=== PATIENT | female | born 1995 | race Caucasian/White ===

== ENCOUNTER → 2020-01-12 17:53 | Outpatient (CLI) | payer OTHER, SELFPAY | PROVIDERS: PCP Family Medicine; Referring Provider Physician Assistant; Visit Provider Physician Assistant | DX: Z20.828 Contact with and (suspected) exposure to other viral communicable diseases (principal) | CPT/HCPCS: 87635; C9803; U0003 ==

== ENCOUNTER → 2020-05-18 14:39 | Outpatient (CLI) | payer OTHER, SELFPAY ==
[2016-09-28 04:01] VITALS: BMI 14.6
[2020-05-18 17:35] LABS: Absolute Lymphocyte Count 1.37 X10^3/uL (0.83-4.51); Basophil# 0.03 X10^3/uL; Basophil% 0.5 % (0-1); Eosinophil# 0.06 X10^3/uL; Hematocrit 35.6 % (37-47); Hemoglobin 11.7 g/dL (12.0-15.0); Lymphocyte # 1.37 X10^3/ul (4.0); Lymphocyte % 23.2 % (19-41); Mean Corp Hgb Conc 32.9 g/dL (32-36); Mean Corpuscular Hgb 28.4 pg (27.0-32.0); Mean Corpuscular Volume 86.4 fL (81-99); Monocyte# 0.46 X10^3/uL; Monocyte% 7.8 % (0-10); NRBC Flagged by Analyzer 0 % (0-5); Neutrophil # 3.97 X10^3/uL (2.7-7.7); Neutrophil % 67.2 % (47-70); Platelet Count 329 K/mm3 (150-450); RBC Distribution Width SD 40.6 fl (35.1-43.9); Red Blood Count 4.12 M/mm3 (4.2-5.4); White Blood Count 5.9 K/mm3 (4.4-11.0)
[2020-05-18 17:59] LABS: ALB/GLOB Ratio 1.8 RATIO (0.9-2.4); AST(SGOT) 19 U/L (15-37); Alanine Aminotransfer ALT/SGPT 30 U/L (13-56); Albumin, Serum 4.4 g/dL (3.2-5.0); Alkaline Phosphatase 69 U/L (45-117); Anion Gap 6 (5-15); BUN 9 mg/dL (7-18); BUN/Creat Ratio 13.4 RATIO (10-20); Calcium,Total 9.1 mg/dL (8.5-10.1); Chloride 110 mmol/L (98-107); Creatinine, Serum 0.67 mg/dL (0.55-1.02); EST Glomerular Filtration Rate 115 mL/min (>60); Est Glom Filt Rate - Afr Amer 139 mL/min (>60); Globulin 2.5 g/dL (2.2-4.2); Glucose 80 mg/dL (74-106); Potassium 3.8 mmol/L (3.5-5.1); Protein, Total 6.9 g/dL (6.4-8.2); Sodium Level 141 mmol/L (136-145); Thyroid Stim Hormone (TSH) 1.35 uIU/mL (0.358-3.74)
== END ==
PROVIDERS: PCP Family Medicine; Referring Provider Family Medicine; Visit Provider Family Medicine
DX: G43.909 Migraine, unspecified, not intractable, without status migrainosus (principal); R55 Syncope and collapse
CPT/HCPCS: 36415; 80053; 84443; 85025

== ENCOUNTER 2020-05-23 08:13 | Emergency (ER) | payer OTHER, SELFPAY ==
[2020-05-23 08:14] VITALS: BP 119/86; PULSE 113; RESP 16; TEMP 36.7; O2SAT 99; BMI 23.3
--- NOTE | 2020-05-23 08:33 | EKG12_ITS ---
Test Reason : GENERAL ILLNESS Blood Pressure : / mmHG Vent. Rate : 119 BPM Atrial Rate : 115 BPM P-R Int : 000 ms QRS Dur : 066 ms QT Int : 430 ms P-R-T Axes : 000 076 016 degrees QTc Int : 604 ms Sinus tachycardia Nonspecific T wave abnormality Prolonged QT Abnormal ECG Confirmed by NICK MCKEON, NEELA ([id number]), writer editor BENY LOAIZA ([id number]) on 05/25/2020 9:26:08 AM Referred By: BECKI Confirmed By:ETHAN ROMERO MD
--- NOTE | 2020-05-23 08:33 | RAD_ITS ---
STUDY: X-RAY CHEST REASON FOR EXAM: Female, 24 years old. Sob TECHNIQUE: Single AP portable view of the chest. COMPARISON: Comparison is made with prior study dated 09/28/2016. FINDINGS: The lungs are clear and expanded. There is no demonstrated pleural abnormality. Normal size heart. Normal mediastinum and randall. Normal visualized pulmonary arteries. Normal visualized aortic arch and descending thoracic aorta. Normal visualized thoracic spine. Normal visualized ribs, clavicles, and shoulders. There is no demonstrated abnormality of the visualized soft tissue structures of the upper abdomen. RAD/Chest 1 View (Portable) IMPRESSION: Normal x-ray examination of the chest. Electronically Signed: Jose Kahn MD at 10:17 EDT , Service support ,
--- NOTE | 2020-05-23 08:41 | NURSING ---
NO OLD EKGS
[2020-05-23] MEDS: 0.9% Normal Saline 1,000 ML 1000 ML IV (08:49)
[2020-05-23 08:52] VITALS: BP 107/76; BP 115/81; BP 117/85; PULSE 113; PULSE 114
[2020-05-23] MEDS: Ondansetron 4 MG/2 ML Vial IV (08:59)
[2020-05-23] MEDS: Famotidine 200 MG/20 ML MDV 20 MG in 0.9% Normal Saline (Pres. free 8 ML 300 MG IV (08:59)
[2020-05-23 09:32] LABS: Mucous, Urine 0 SEEN /hpf (<or=2+); Red Blood Cells-Urine 0 SEEN /hpf (0-5)
[2020-05-23 09:48] LABS: Color, Urine Yellow (Yellow); Glucose, Dipstick NEGATIVE (Normal); Nitrite-Dipstick Positive (Negative); Protein-Dipstick 30 mg/dl (Negative); Urine Bilirubin Dipstick Negative (Negative); Urine Clarity Clear (Clear); Urine Urobilinogen Normal (Normal)
[2020-05-23 09:49] LABS: Leukocyte Esterase-Dipstick 25 /ul (Negative); Occult Blood-Urine 25 /ul (Negative)
[2020-05-23 09:51] LABS: Hematocrit 43.5 % (37-47); Hemoglobin 15.2 g/dL (12.0-15.0); Red Blood Count 5.26 M/mm3 (4.2-5.4); White Blood Count 13.8 K/mm3 (4.4-11.0)
[2020-05-23 09:52] LABS: Bacteria 3+ /hpf (None Seen); Internal QC Validated? YES +Cl - CLEAR BKGD; Ketone-Dipstick 150 mg/dl (Negative); Pregnancy, Urine Negative Negative; Squamous Epithelial Cells - UA 0-5 SEEN /hpf (5-10); White Blood Cells 10-25 SEEN /hpf (0-5)
[2020-05-23 09:52] LABS: Differential Indicated SCAN CRITERIA MET; Mean Corp Hgb Conc 34.9 g/dL (32-36); Mean Corpuscular Hgb 28.9 pg (27.0-32.0); Mean Corpuscular Volume 82.7 fL (81-99); Mean Platelet Vol. 9.1 fl (6.2-12.0); Platelet Count 346 K/mm3 (150-450); RBC Distribution Width CV 12.9 % (11.6-14.6); RBC Distribution Width SD 38.4 fl (35.1-43.9)
[2020-05-23 09:53] LABS: Absolute Lymphocyte Count 0.58 X10^3/uL (0.83-4.51); Absolute Neutrophil Count 12.7 X10^3/uL (2.0-7.7); Basophil# 0.03 X10^3/uL; Basophil% 0.2 % (0-1); Eosinophil# 0.07 X10^3/uL; Eosinophils% 0.5 % (0-5); Lymphocyte # 0.58 X10^3/ul (4.0); Lymphocyte % 4.2 % (19-41); Monocyte# 0.45 X10^3/uL; Monocyte% 3.3 % (0-10); Neutrophil # 12.65 X10^3/uL (2.7-7.7); Neutrophil % 91.5 % (47-70)
[2020-05-23 10:03] LABS: ALB/GLOB Ratio 1.4 RATIO (0.9-2.4); AST(SGOT) 11 U/L (15-37); Alanine Aminotransfer ALT/SGPT 30 U/L (13-56); Albumin, Serum 5.3 g/dL (3.2-5.0); Alkaline Phosphatase 97 U/L (45-117); Anion Gap 10 (5-15); BUN 15 mg/dL (7-18); BUN/Creat Ratio 17.5 RATIO (10-20); Calcium,Total 10.4 mg/dL (8.5-10.1); Chloride 107 mmol/L (98-107); Creatinine, Serum 0.86 mg/dL (0.55-1.02); EST Glomerular Filtration Rate 88 mL/min (>60); Est Glom Filt Rate - Afr Amer 106 mL/min (>60); Estimated Creatinine Clearance 77.43 ml/min; Globulin 3.8 g/dL (2.2-4.2); Glucose 99 mg/dL (74-106); Lipase 147 U/L (73-393); Potassium 3.8 mmol/L (3.5-5.1); Protein, Total 9.1 g/dL (6.4-8.2); Sodium Level 139 mmol/L (136-145)
[2020-05-23 10:21] VITALS: BP 104/74
[2020-05-23] MEDS: Metoclopramide 10 MG/2 ML Vial 2.5 MG IV (10:33)
[2020-05-23] MEDS: Cephalexin 250 MG Capsule 500 MG PO (10:34)
--- NOTE | 2020-05-23 10:35 | ED.VIS.GI ---
History of Present Illness Chief Complaint: General Illness Informant: Patient - Abdominal Pain/Flank Pain Onset: Yesterday - Nausea/Vomiting/Emesis GI Symptom: Nausea, Vomiting Narrative: Is a 24-year-old female without any significant past medical history presenting with nausea vomiting and syncope. Patient states she started vomiting last night around 1:30 AM. She had vomiting and diarrhea. She denies any black or blood in her vomit or her stool. Patient states when she got up to go the bathroom she felt lightheaded and then when she tried to stand up again she passed out. Her boyfriend witnessed the episode and states she was out for less than a minute. Patient notes for the past week she has had worsening headaches and cold-like symptoms. She notes she does have some associated shortness of breath and chest tightness. She has any swelling of her legs. Denies a history of DVT or PE. She was tested for Covid last week on and was negative. Patient states she has had a cough productive of yellow sputum. She denies any fever. No other complaints at this time. Past Medical History - Allergies and Home Meds Allergies/Adverse Reactions: Allergies latex Allergy (Verified 05/23/20 08:17) Rash Sulfa (Sulfonamide Antibiotics) Allergy (Verified 05/23/20 08:17) Rash Primary Care Physician: Pako Pappas MD [Primary Care Provider] - Past Medical History: None Surgical History: noncontributory Lives: Spouse/ Significant Other Smoking Status: Never smoker Review of Systems General: Reports: Malaise. Denies: Chills, Fever, Sweats Eyes: Denies: Visual changes - bilaterally, Diplopia ENT: Denies: Rhinorrhea, Sore throat Cardiovascular: Denies: Chest pain, Palpitations Respiratory: Reports: Dyspnea, Cough, Sputum. Denies: Dyspnea on exertion Gastrointestinal: Reports: Nausea, Vomiting, Diarrhea. Denies: Abdominal pain, Melena, Hematochezia Genitourinary: Denies: Dysuria, Hematuria, Frequency Musculoskeletal: Denies: Back pain, Extremity Pain Skin: Denies: Rash, Wounds Neurological: Denies: Headache, Weakness, Numbness Physical Exam Vital Signs/Narrative: Vital Signs Temp Pulse Pulse Pulse Pulse Resp BP 05/23/20 10:21 104/74 05/23/20 08:52 114 H 113 H 114 H 05/23/20 08:14 98.0 F 113 H 16 119/86 H BP BP BP Pulse Ox 05/23/20 10:21 05/23/20 08:52 107/76 115/81 H 117/85 H 05/23/20 08:14 99 Inital Vital Signs reviewed: Yes General: Well nourished, Well developed, No Acute Distress Head: Normocephalic, Atraumatic Eyes: Perrl, EOMI ENT: No rhinorrhea, Dry mucous membranes Neck: Supple, Nontender Cardiovascular: Regular rhythm, No murmurs, Tachycardia Respiratory: No distress, CTA bilaterally, Chest nontender. Negative for: Diminished, Decreased Air Movement Abdomen: Soft, Nontender, Nondistended, Normal bowel sounds. Negative for: Guarding, Rebound tenderness Back: Nontender, Normal Inspection. Negative for: CVA tenderness Extremities: Nontender, No edema. Negative for: Edema Skin: Normal color, No rash Neurological: Alert, Oriented x3, Cranial nerves II-XII grossly intact, Normal Strength, Normal Sensation Psychological: Normal affect, Normal Mood Diagnostic/Tx/Re-eval Chest X-Ray - ED: 1 View, Read by ED Physician, Read by Radiologist, No Acute Disease Clinical Impression(s) from Imaging Studies Chest X-Ray 05/23/20 08:33 IMPRESSION: Normal x-ray examination of the chest. Electronically Signed: Jose Kahn MD at 10:17 EDT , Service support , Laboratory Data 05/23/20 05/23/20 05/23/20 08:45 08:45 09:24 WBC 13.8 H RBC 5.26 Hgb 15.2 H Hct 43.5 MCV 82.7 MCH 28.9 MCHC 34.9 D RDW Std Deviation 38.4 RDW Coeff of Brice 12.9 Plt Count 346 MPV 9.1 Immature Gran % (Auto) 0.300 Neut % (Auto) 91.5 H Lymph % (Auto) 4.2 L Walsh % (Auto) 3.3 Eos % (Auto) 0.5 Baso % (Auto) 0.2 Absolute Neuts (auto) 12.7 H Absolute Lymphs (auto) 0.58 L Differential Comment COMMENT Sodium 139 Potassium 3.8 Chloride 107 Carbon Dioxide 22.0 Anion Gap 10 BUN 15 Creatinine 0.86 Estim Creat Clear Calc 77.43 Est GFR (MDRD) Af Amer 106 Est GFR (MDRD) Non-Af 88 BUN/Creatinine Ratio 17.5 Glucose 99 Calcium 10.4 H Total Bilirubin 1.00 AST 11 L ALT 30 Alkaline Phosphatase 97 Troponin I < 0.015 Total Protein 9.1 H Albumin 5.3 H Globulin 3.8 Albumin/Globulin Ratio 1.4 Lipase 147 Urine Color Yellow Urine Clarity Clear Urine pH 5.0 Ur Specific [place] 1.020 Urine Protein 30 H Urine Glucose (UA) NEGATIVE Urine Ketones 150 H Urine Occult Blood 25 H Urine Nitrite Positive H Urine Bilirubin Negative Urine Urobilinogen Normal Ur Leukocyte Esterase 25 H Urine RBC 0 SEEN Urine WBC 10-25 SEEN Ur Squamous Epith Cells 0-5 SEEN Urine Bacteria 3+ Urine Mucus 0 SEEN Urine Test Negative - Rhythm Strip Rhythm Strip: Sinus Tach Rate: 119 Ectopy: None - EKG Initial EKG Interpretation: Sinus Tachycardia, - - Sinus tachycardia at a rate of 119 Normal axis Normal [place] and QRS Prolonged QTC at 604 T wave inversion in inferior leads with no reciprocal changes. - Medical Decision Making Patient evaluated for what sounds like a vasovagal episode of syncope after having vomiting and diarrhea. Patient is complaining of nausea upon arrival. She is tachycardic. She is given IV fluids and Zofran. She does have improvement of symptoms with this treatment. Patient also states she is had a cold for the past week and associated chest tightness. EKG, troponin, Covid test and chest x-ray obtained which do not show any acute process. I suspect patient has a viral syndrome that is causing her symptoms. Discharged home with prescription for Zofran. She does have a mild leukocytosis however this might be reactive from her vomiting. Patient's hemoglobin is mildly elevated and I suspect she is hemoconcentrated. She does have elevated neutrophils which is consistent with low lymphocytes. CMP is normal. Lipase is normal. Urinalysis does show 150 ketones which is consistent with dehydration. She does have nitrates and 25 leukoesterase as well as 3+ bacteria in her urine. She will be treated for UTI as well with 3-day course of Keflex. Patient is counseled on signs and symptoms requiring return to the emergency room. Patient verbalizes agreement and understand this plan. Patient discharged home in stable and improved condition. ED Disposition - Plan for ED Patient: Disposition: Home or Assisted Living Diagnosis: UTI (urinary tract infection), Syncope and collapse, Vomiting and diarrhea, Dehydration Instructions: ED Dehydration (Adult), ED Fainting, Uncertain Cause, ED Vomiting and Diarrhea ... Prescriptions: Cephalexin [Keflex] 500 mg PO Q12 #6 capsule Prescription Printed proMETHazine tablet [Phenergan] 25 mg PO Q6H PRN PRN #10 tab PRN Reason: Nausea Prescription Printed Referrals: Pako Pappas MD [Primary Care Provider] - Additional Instructions: Return to the ER if you have worsening shortness of breath, more episodes of passing out or worsening symptoms.
== END 2020-05-23 11:03 | disposition home or self-care (01) ==
PROVIDERS: Emergency Provider Emergency Medicine; PCP Family Medicine
DX: N39.0 Urinary tract infection, site not specified (principal); R55 Syncope and collapse; E86.0 Dehydration; R11.2 Nausea with vomiting, unspecified; R19.7 Diarrhea, unspecified
CPT/HCPCS: 71045; 80053; 81001; 81025; 83690; 84484; 85025; 87426; 93005; 96365; 96366; 96375; 99285; J7030; A4216; J2405; J3490

== ENCOUNTER → 2020-10-18 | Outpatient (CLI) | payer OTHER, SELFPAY ==
[2020-10-18 17:35] LABS: Amphetamine Urine VISTA NEGATIVE (<1000 ng/mL); Barbiturate Urine VISTA NEGATIVE (< 200 ng/mL); Benzodiazepine Urine VISTA NEGATIVE (< 200 ng/mL); Cocaine Urine VISTA NEGATIVE (< 300 ng/mL); Ecstacy Urine VISTA NEGATIVE (< 500 ng/mL); Methadone Urine VISTA NEGATIVE (< 300 ng/mL); PCP Urine VISTA NEGATIVE (< 25 ng/mL); THC Urine VISTA NEGATIVE (< 50 ng/mL); Vista UDS pH Range 6
[2020-10-22 05:07] LABS: Chlamydia By Nucleic Acid AMP Negative (Negative)
[2020-10-23 08:22] LABS: Gonococcus By Nucleic Acid AMP Negative (Negative)
[2020-10-23 16:58] LABS: HPV Reflexed? NOT INDICATED
== END | disposition home or self-care (01) ==
LOC: LABSPEC 16:37
PROVIDERS: PCP Family Medicine; Referring Provider Obstetrics & Gynecology; Visit Provider Obstetrics & Gynecology
DX: Z12.4 Encounter for screening for malignant neoplasm of cervix (principal); O09.90 Supervision of high risk pregnancy, unspecified, unspecified trimester; Z3A.00 Weeks of gestation of pregnancy not specified
CPT/HCPCS: 80307; 87086; 87491; 87591; 88175; G0145

== ENCOUNTER → 2020-11-21 10:55 | Outpatient (CLI) | payer OTHER, SELFPAY ==
[2020-11-21 11:14] LABS: Absolute Lymphocyte Count 1.66 X10^3/uL (0.83-4.51); Absolute Neutrophil Count 7.4 X10^3/uL (2.0-7.7); Basophil# 0.02 X10^3/uL; Basophil% 0.2 % (0-1); Eosinophil# 0.12 X10^3/uL; Eosinophils% 1.2 % (0-5); Hematocrit 37.4 % (37-47); Hemoglobin 12.9 g/dL (12.0-15.0); Lymphocyte # 1.66 X10^3/ul (0.83-4.51); Mean Corp Hgb Conc 34.5 g/dL (32-36); Mean Platelet Vol. 9.1 fl (6.2-12.0); Monocyte# 0.56 X10^3/uL; Monocyte% 5.7 % (0-10); NRBC Flagged by Analyzer 0 % (0-5); Neutrophil # 7.37 X10^3/uL (2.7-7.7); Neutrophil % 75.4 % (47-70); Platelet Count 326 K/mm3 (150-450); RBC Distribution Width CV 12.2 % (11.6-14.6); RBC Distribution Width SD 37.2 fl (35.1-43.9); Red Blood Count 4.45 M/mm3 (4.2-5.4); White Blood Count 9.8 K/mm3 (4.4-11.0)
[2020-11-21 12:06] LABS: HIV - WCH Non-Reactive (Nonreactive); Hepatitis B Surface Antigen Non-Reactive (Nonreactive); Hepatitis C Antibody Non-Reactive (Nonreactive); Rubella IgG Reactive (Nonreactive); Syphilis Antibodies Non-reactive
[2020-11-21 12:08] LABS: NATERA MAILED SPECIMEN
== END ==
PROVIDERS: PCP Family Medicine; Referring Provider Obstetrics & Gynecology; Visit Provider Obstetrics & Gynecology
DX: O09.91 Supervision of high risk pregnancy, unspecified, first trimester (principal); Z3A.00 Weeks of gestation of pregnancy not specified
CPT/HCPCS: 36415; 85025; 86703; 86762; 86780; 86803; 86850; 86900; 86901; 87340

== ENCOUNTER 2021-08-06 14:45 | Emergency (ER) | payer OTHER, SELFPAY ==
[2021-08-06 14:46] VITALS: BP 121/79; PULSE 120; RESP 18; TEMP 36.6; O2SAT 97; BMI 22.3
--- NOTE | 2021-08-06 15:24 | ED.VIS.GI ---
HPI HPI - GI History of Present Illness Chief Complaint: Abd Pain Detail of Chief Complaint: Abdominal pain that started a month ago Informant: patient Narrative Narrative: Patient presents to the emergency department complaint of abdominal pain that started a month ago. Patient states that she has had similar pain off and on for the last 9 years and thinks she has gallbladder flareups. Food really does not seem to affect her pain. Pain is scribed as severe in the epigastric region and radiating through to her back at times. Patient denies had a fever 2 days ago up to 101.. Patient's had intermittent nausea and vomiting but she is also 13 weeks . There is a family history of gallbladder disease. Patient also states she has had history of peptic ulcer disease. She is also wondering if it could be heartburn. Patient had a ultrasound of the at 6 weeks. She not had any vaginal bleeding. Prior similar symptoms: Yes PFSH PFSH Medical History Anemia Asthma Bleeding disorder Congenital heart defect Factor V deficiency GERD (gastroesophageal reflux disease) History of blood clots History of blood transfusion History of maternal blood transfusion, currently Migraine headache Pneumonia hemorrhage of section wound Home Medications naproxen 500 mg PO BID PRN #20 tab 09/28/16 [Rx Last Taken Unknown] ondansetron HCl 4 mg tablet 4 mg PO TID PRN #90 tab 08/21/20 [Rx Last Taken Unknown] enoxaparin 40 mg/0.4 mL subcutaneous syringe 40 mg SUBCUT DAILY #30 dose 10/18/20 [Rx Last Taken Unknown] hydroxyzine pamoate 25 mg capsule 25 mg PO QHS #30 cap 10/18/20 [Rx Last Taken Unknown] promethazine 12.5 mg tablet 12.5 mg PO Q6H PRN #60 tab 10/18/20 [Rx Last Taken Unknown] ondansetron 4 mg PO Q8H PRN PRN #10 tab 08/06/21 [Rx Last Taken Unknown] Allergy/AdvReac Type Severity Reaction Status Date / Time latex Allergy Rash Verified 08/06/21 14:48 Sulfa (Sulfonamide Allergy Rash Verified 08/06/21 14:48 Antibiotics) Family History Sister Kidney disease Mother Liver disease Surgical History H/O section H/O reconstruction of anterior cruciate ligament tear History of myringotomy History of tonsillectomy Social History household members: children number of children: 1 current occupational status: employed current occupation: [employer] pets and animals: No Smoking Status: Never smoker Electronic Cigarette Use: not used second hand exposure: Yes (BF vapes) alcohol intake: current alcohol intake frequency: holidays/special occasions only substance use type: does not use seatbelt use: always do you feel safe at home: Yes additional social history: BF- [employer] ([employer]) ROS ROS ED Constitutional Constitutional ED: Reports systems reviewed and no addt'l complaints, except as documented; Denies body ache(s), change in weight or chills Eyes Eyes: Denies acute decrease in peripheral vision, change in vision, double vision or loss of vision ENT ENT ED: Reports none; Denies ear pain, lip swelling, loss taste/smell, neck pain, otalgia or sore throat Cardiovascular Cardiovascular: Reports none; Denies abdominal pain, chest pain with activity, leg edema, lightheadedness, palpitations, rapid heart rate or syncope Respiratory/Chest Respiratory/Chest: Reports none; Denies change in mental status, dry cough, dyspnea, hemoptysis, shortness of breath at rest or shortness of breath with exertion Gastrointestinal Gastrointestinal: Reports none, abdominal pain, nausea and vomiting; Denies change in stool character, diarrhea, hematemesis, hematochezia, melena or rectal bleeding Genitourinary Genitourinary ED: Reports none; Denies abdominal discomfort, anuria, dysuria, genital pain or polyuria Musculoskeletal Musculoskeletal: Reports none; Denies arthralgias, back pain, difficulty walking, extremity pain, muscle weakness or myalgias Integumentary Reports none; Denies abscess or rash Neurologic Neurologic: Reports none; Denies abnormal gait, confusion, focal weakness, frequent falls, headache(s), loss of vision, numbness, paresthesias, radicular pain, vertigo or weakness Psychiatric Psychiatric: Reports systems reviewed and no addt'l complaints, except as documented and none; Denies behavioral changes, confusion, difficulty concentrating, hallucinations, suicidal ideation, tactile hallucinations or visual hallucinations Endocrine Endocrinology: Denies none, cold intolerance, excessive sweating, fatigue or heat intolerance Hematologic/Lymphatic Hematologic/Lymphatic: Reports none; Denies anemia, easy bleeding or easy bruising Allergic/Immunologic Allergic/Immunologic ED: Denies as per HPI, none, lip swelling, mouth swelling, throat swelling, tongue swelling or hives EXAM Physical Exam Const Vital Signs: 08/06/21 14:46 08/06/21 17:03 Temperature 97.9 F Temperature Source Temporal Pulse Rate 120 H Respiratory Rate 18 16 Blood Pressure 121/79 H Blood Pressure Mean 93 Pulse Ox 97 Oxygen Delivery Method Room Air Positive well nourished and well developed General Appearance ED: well developed and NAD HEENT Reports TM's clear and moist mucous membranes normocephalic and atraumatic; Negative for trauma or tenderness Tympanic Membrane ED: Yes TM's clear Eyes PERRL and EOMs intact bilaterally General Eye ED: Negative for pale conjunctiva or scleral icterus Neck no lymphadenopathy, supple and no JVD General: Negative for tenderness Chest Wall inspection of chest normal and palpation of chest normal Chest: Negative for tenderness Resp normal respiratory effort and clear to auscultation bilaterally Effort and Inspection: Negative for respiratory distress or pain with movement Auscultation: Negative for rhonchi, wheezes or diminished lung sounds Cardio regular rate, regular rhythm, S1 normal heart sound, S2 normal heart sound and no murmurs Peripheral Pulses: pulses 2+ throughout GI normal to inspection, nondistended, normoactive bowel sounds, soft to palpation, non-distended and no masses GI Narrative: Patient with tenderness over the epigastric region with some guarding. There is no rebound, rigidity, or peritoneal signs. Back/Spine no CVA tenderness and no thoracic nor lumbar tenderness Extremity normal to inspection General Extremety ED: Negative for edema General Extremity: Negative for edema Neuro oriented x3, CN's II-XII intact bilaterally, no sensory deficits noted and gait normal Sensorium / Orientation: awake, alert, oriented to person, oriented to place and oriented to time Motor Exam: strength 5/5 throughout and strength abnormal Psych mental status grossly normal Skin no rashes or lesions noted and no wounds MDM MDM MDM Narrative Medical decision making narrative: IV lines have on arrival. Lab work-up was normal. LFTs and lipase were normal. Urinalysis was normal.. heart tones were 154. Patient received a GI cocktail for pain that was 8 out of 10 and had almost complete resolution of her pain. At this point patient will be discharged to home. Patient does state that she has a prescription for medicine but has not been needing it or taking it for acid secretion. Patient advised to use Mylanta if pain returns. 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 Patient advised to return if worsening pain, fever, vomiting, or condition should worsen anyway. I will give her a prescription for Zofran. Lab Data Attestation: I reviewed the patient's lab results. Labs: Laboratory Results - last 24 hr 08/06/21 08/06/21 08/06/21 15:08 15:08 15:30 WBC 8.5 RBC 3.73 L Hgb 10.8 L Hct 31.2 L MCV 83.6 MCH 29.0 MCHC 34.6 RDW Std Deviation 39.6 RDW Coeff of Brice 13.1 Plt Count 295 MPV 9.4 Immature Gran % (Auto) 0.400 Neut % (Auto) 75.3 H Lymph % (Auto) 17.0 L [place] % (Auto) 5.5 Eos % (Auto) 1.4 Baso % (Auto) 0.4 Absolute Neuts (auto) 6.4 Absolute Lymphs (auto) 1.45 Nucleated RBC % 0 Sodium 139 Potassium 3.4 L Chloride 110 H Carbon Dioxide 22.0 Anion Gap 7 BUN 6 L Creatinine 0.53 L Estim Creat Clear Calc 123.51 Est GFR (MDRD) Af Amer 184 Est GFR (MDRD) Non-Af 152 BUN/Creatinine Ratio 11.4 Glucose 95 Calcium 8.8 Total Bilirubin 0.30 AST 9 L ALT 11 L Alkaline Phosphatase 58 Total Protein 6.2 L Albumin 3.1 L Globulin 3.1 Albumin/Globulin Ratio 1.0 Lipase 189 Urine Color Straw Urine Clarity Sl. Cloudy Urine pH 7.0 Ur Specific [place] 1.010 Urine Protein Negative Urine Glucose (UA) Normal Urine Ketones Negative Urine Occult Blood Negative Urine Nitrite Negative Urine Bilirubin Negative Urine Urobilinogen Normal Ur Leukocyte Esterase Negative Urine RBC 0 SEEN Urine WBC 0 SEEN Ur Squamous Epith Cells 0-5 SEEN Urine Bacteria 1+ Urine Mucus 0 SEEN Discharge Plan Triage Chief Complaint: Abd Pain ED Provider: Marisol Le Dx/Rx/DC Orders Clinical Impression: Abdominal pain, GERD with esophagitis, Instructions: ED Abdominal Pain Unkn Cause Fem, ED GERD (Adult) Prescriptions: New ondansetron [ondansetron] 4 MG tablet 4 mg PO Q8H PRN PRN (Reason: Nausea) Qty: 10 RF: 0 No Action ondansetron HCl [Zofran] 4 mg tablet 4 mg PO TID PRN (Reason: nausea and vomiting) Qty: 90 RF: 2 promethazine 12.5 mg tablet 12.5 mg PO Q6H PRN (Reason: nausea and vomiting) Qty: 60 RF: 2 hydroxyzine pamoate [Vistaril] 25 mg capsule 25 mg PO QHS Qty: 30 RF: 4 enoxaparin [Lovenox] 40 mg/0.4 mL syringe 40 mg subcut DAILY Qty: 30 RF: 10 naproxen 500 MG tablet 500 mg PO BID PRN Qty: 20 RF: 0 Primary Care Provider: Care Physician,No Primary Referrals: Care Physician,No Primary [Primary Care Provider] - Activity Restrictions/Additional Instructions: See your [employer] SUPERVISOR to discuss further treatment of reflux or peptic ulcer disease during her . Disposition Disposition: Home, Self Care
[2021-08-06] MEDS: Mag Hydrox/Al Hydrox/Simeth 30 ML UDC PO (15:32)
[2021-08-06] MEDS: 0.9% Normal Saline 1,000 ML 125 ML IV (15:32)
[2021-08-06 15:41] LABS: Absolute Lymphocyte Count 1.45 X10^3/uL (0.83-4.51); Absolute Neutrophil Count 6.4 X10^3/uL (2.0-7.7); Basophil# 0.03 X10^3/uL; Basophil% 0.4 % (0-1); Eosinophil# 0.12 X10^3/uL; Eosinophils% 1.4 % (0-5); Hematocrit 31.2 % (37-47); Hemoglobin 10.8 g/dL (12.0-15.0); Lymphocyte # 1.45 X10^3/ul (0.83-4.51); Mean Corp Hgb Conc 34.6 g/dL (32-36); Mean Corpuscular Volume 83.6 fL (81-99); Mean Platelet Vol. 9.4 fl (6.2-12.0); Monocyte# 0.47 X10^3/uL; Monocyte% 5.5 % (0-10); NRBC Flagged by Analyzer 0 % (0-5); Neutrophil # 6.44 X10^3/uL (2.7-7.7); Neutrophil % 75.3 % (47-70); Platelet Count 295 K/mm3 (150-450); RBC Distribution Width CV 13.1 % (11.6-14.6); RBC Distribution Width SD 39.6 fl (35.1-43.9); Red Blood Count 3.73 M/mm3 (4.2-5.4); White Blood Count 8.5 K/mm3 (4.4-11.0)
[2021-08-06 15:51] LABS: Mucous, Urine 0 SEEN /hpf (<or=2+); Red Blood Cells-Urine 0 SEEN /hpf (0-5); White Blood Cells 0 SEEN /hpf (0-5)
[2021-08-06 16:00] LABS: Color, Urine Straw (Yellow); Glucose, Dipstick Normal (Normal); Ketone-Dipstick Negative (Negative); Leukocyte Esterase-Dipstick Negative /ul (Negative); Nitrite-Dipstick Negative (Negative); Occult Blood-Urine Negative /ul (Negative); Protein-Dipstick Negative (Negative); Urine Bilirubin Dipstick Negative (Negative); Urine Clarity Sl. Cloudy (Clear); Urine Urobilinogen Normal (Normal)
[2021-08-06 16:01] LABS: AST(SGOT) 9 U/L (15-37); Alanine Aminotransfer ALT/SGPT 11 U/L (13-56); Albumin, Serum 3.1 g/dL (3.2-5.0); Alkaline Phosphatase 58 U/L (45-117); Anion Gap 7 (5-15); BUN 6 mg/dL (7-18); BUN/Creat Ratio 11.4 RATIO (10-20); Calcium,Total 8.8 mg/dL (8.5-10.1); Chloride 110 mmol/L (98-107); Creatinine, Serum 0.53 mg/dL (0.55-1.02); EST Glomerular Filtration Rate 152 mL/min (>60); Est Glom Filt Rate - Afr Amer 184 mL/min (>60); Estimated Creatinine Clearance 123.51 ml/min; Globulin 3.1 g/dL (2.2-4.2); Glucose 95 mg/dL (74-106); Lipase 189 U/L (73-393); Potassium 3.4 mmol/L (3.5-5.1); Protein, Total 6.2 g/dL (6.4-8.2); Sodium Level 139 mmol/L (136-145)
--- NOTE | 2021-08-06 16:10 | CM.ED ---
SW Note Referral Source: Case Find Referral Reason: No PCP SW noted patient had no PCP. SW provided patient with [facility] Healthcare Directory and encouraged them to follow up for a PCP. No other issues or questions voiced. SW remains available if needs arise. Plan: Resources provided Sera RAIN
[2021-08-06 16:27] LABS: Bacteria 1+ /hpf (None Seen); Squamous Epithelial Cells - UA 0-5 SEEN /hpf (5-10)
[2021-08-06 17:03] VITALS: RESP 16
== END 2021-08-06 17:33 | disposition home or self-care (01) ==
PROVIDERS: Emergency Provider Emergency Medicine; Visit Provider Emergency Medicine
DX: O99.611 Diseases of the digestive system complicating pregnancy, first trimester (principal); K21.00 Gastro-esophageal reflux disease with esophagitis, without bleeding; Z3A.13 13 weeks gestation of pregnancy; Z77.22 Contact with and (suspected) exposure to environmental tobacco smoke (acute) (chronic)
CPT/HCPCS: 80053; 81001; 83690; 85025; 96360; 96361; 99284; J7030; A4216

== ENCOUNTER 2021-09-07 15:33 | Emergency (ER) | payer OTHER, SELFPAY ==
[2021-09-07 15:33] VITALS: BP 107/82; PULSE 118; RESP 16; TEMP 37.4; O2SAT 100; BMI 21.7
--- NOTE | 2021-09-07 15:45 | EDS_ITS ---
HPI <CANDELARIO Xiao - Last Filed: 09/07/21 16:22> History of Present Illness Chief Complaint: Nausea/Vomiting Narrative Narrative: Patient is 18 weeks presenting with nausea and vomiting since midnight. She has not been able to keep down anything to eat or drink despite taking Phenergan. She states in her first she had bad nausea and vomiting but has not significantly had at this time. She has had no complications thus far and is following with OB. She denies abdominal pain or bladder or bowel changes. She thought she had a fever just prior to coming in but here is afebrile. No abdominal pain or bleeding. PENDING SALE TO [facility] <CANDELARIO Xiao - Last Filed: 09/07/21 16:22> PENDING SALE TO [facility] Medical History Anemia Asthma Bleeding disorder Congenital heart defect Factor V deficiency GERD (gastroesophageal reflux disease) History of blood clots History of blood transfusion History of maternal blood transfusion, currently Migraine headache Pneumonia hemorrhage of section wound Home Medications naproxen 500 mg tablet 500 mg PO BID PRN #20 tabs 09/28/16 [Rx Last Taken Unknown] ondansetron HCl 4 mg tablet (Zofran) 4 mg PO TID PRN nausea and vomiting #90 tabs 08/21/20 [Rx Last Taken Unknown] enoxaparin 40 mg/0.4 mL subcutaneous syringe (Lovenox) 40 mg (0.4 mL) subcut DAILY #30 doses 10/18/20 [Rx Last Taken Unknown] hydroxyzine pamoate 25 mg capsule (Vistaril) 25 mg PO QHS #30 caps 10/18/20 [Rx Last Taken Unknown] promethazine 12.5 mg tablet 12.5 mg PO Q6H PRN nausea and vomiting #60 tabs 10/18/20 [Rx Last Taken Unknown] ondansetron 4 mg disintegrating tablet 4 mg PO Q8H PRN PRN Nausea #10 tabs 08/06/21 [Rx Last Taken Unknown] ondansetron 4 mg disintegrating tablet 4 mg PO Q8H PRN PRN Nausea #10 tabs 09/07/21 [Rx Last Taken Unknown] Allergy/AdvReac Type Severity Reaction Status Date / Time latex Allergy Rash Verified 09/07/21 15:35 Sulfa (Sulfonamide Allergy Rash Verified 09/07/21 15:35 Antibiotics) Family History Sister Kidney disease Mother Liver disease Surgical History H/O section H/O reconstruction of anterior cruciate ligament tear History of myringotomy History of tonsillectomy Social History household members: children number of children: 1 current occupational status: employed current occupation: [employer] pets and animals: No Smoking Status: Never smoker Electronic Cigarette Use: not used second hand exposure: Yes (BF vapes) alcohol intake: current alcohol intake frequency: holidays/special occasions only substance use type: does not use seatbelt use: always do you feel safe at home: Yes additional social history: BF- Jorden ([employer]) ROS <CANDELARIO Xiao - Last Filed: 09/07/21 16:22> ROS ED ROS Narrative Constitutional: Negative for fever, chills, malaise. Eyes: Negative for visual change. ENT: Negative for sore throat, ear pain, rhinorrhea. CVS: Negative for palpitations, chest pain, syncope. Respiratory: Negative for shortness of breath, cough, orthopnea. GI: Positive for nausea, vomiting. Negative for abdominal pain, diarrhea, constipation, melena, hematochezia. : Negative for dysuria, hematuria or frequency. Neuro: Negative for headache, motor/sensory dysfunction. Skin: Negative for rash, abscess, or wound. Musc: Negative for joint pain, swelling, trauma. Heme: Negative for easy bruising, bleeding, lymphadenopathy. EXAM <CANDELARIO Xiao - Last Filed: 09/07/21 16:22> Physical Exam Narrative Exam Narrative: CONST: Patient sitting in no acute distress. EYES: Normal inspection. ENT: Normal inspection,slightly dry mucous membranes. NECK: Normal inspection. RESP: No respiratory distress, CTAB. CVS: Rapid but regular rhythm, no murmur, no gallop. ABD: Soft and nontender, no guarding or rebound. SKIN: Color normal, no rash, warm, dry, intact. EXTREMITIES: Normal appearance, no pedal edema. NEURO: Oriented x4. PSYCH: Normal affect. Const Vital Signs: 09/07/21 15:33 Temperature 99.3 F H Temperature Source Temporal Pulse Rate 118 H Respiratory Rate 16 Blood Pressure 107/82 H Blood Pressure Mean 90 Pulse Ox 100 Oxygen Delivery Method Room Air <Dr. Andres Bullock MD - Last Filed: 09/07/21 16:06> Physical Exam Const Vital Signs: 09/07/21 15:33 Temperature 99.3 F H Temperature Source Temporal Pulse Rate 118 H Respiratory Rate 16 Blood Pressure 107/82 H Blood Pressure Mean 90 Pulse Ox 100 Oxygen Delivery Method Room Air MDM <CANDELARIO Xiao - Last Filed: 09/07/21 16:22> [facility] Narrative Medical decision making narrative: PA: Patient is 18 weeks presenting with nausea and vomiting. She appears slightly dehydrated but nontoxic. Tachycardic around 118, otherwise normal vital signs. Other than mildly dry mucous membranes and rapid rate regular rhythm exam is benign. She will be treated with IV fluids and Zofran and reevaluated. She feels better but is requesting something for acid reflux which is a chronic condition. She was given p.o. Protonix and is keeping that down along with fluids. I prescribed Zofran for home and she was discharged in stable condition. I have personally performed a face to face assessment of the patient and have reviewed the [facility] Note. I performed a substantive portion of the visit including all aspects of the following. My warren findings include: History is [26-year-old female evaluated with our physician child welfare assistant. Patient is Ab0. Currently patient is 18 weeks and is due on February 09. States that she had a lot of nausea and vomiting with her first . She has been nausea and vomiting today. No fever. No dysuria. Vaginal bleeding.] Exam is [well-appearing 26-year-old female no acute distress. Vital signs stable. She does not look septic or toxic. H EENT exam unremarkable. Moist with membranes. Neck nontender no lymphadenopathy. Lungs are clear. Heart regular rhythm rate about 110 no murmur. Abdomen is soft no peritoneal signs. No obstruction. No uterine tenderness. Patient moving all 4 extremities. Nontender. No edema. Neurologically she is awake and alert.] Medical Decision Making [18-week female with nausea and vomiting. Treated with IV fluids and IV Zofran. When she can hold down fluids she will be discharged home. Prescription for Zofran. Follow-up with her DIRECTOR OF RECRUITMENT AND ADMISSIONS physician. Return if worse.] Other additions or changes: [None] <Dr. Andres Bullock MD - Last Filed: 09/07/21 16:06> [facility] Narrative Medical decision making narrative: Patient is 18 weeks presenting with nausea and vomiting. She appears slightly dehydrated but nontoxic. Tachycardic around 03/02/2017, otherwise normal vital signs. Other than mildly dry mucous membranes and rapid rate regular rhythm exam is benign. She will be treated with IV fluids and Zofran and reevaluated. I have personally performed a face to face assessment of the patient and have reviewed the [facility] Note. I performed a substantive portion of the visit including all aspects of the following. My warren findings include: History is [26-year-old female evaluated with our physician child welfare assistant. Patient is Ab0. Currently patient is 18 weeks and is due on February 09. States that she had a lot of nausea and vomiting with her first . She has been nausea and vomiting today. No fever. No dysuria. Vaginal bleeding.] Exam is [well-appearing 26-year-old female no acute distress. Vital signs stable. She does not look septic or toxic. H EENT exam unremarkable. Moist with membranes. Neck nontender no lymphadenopathy. Lungs are clear. Heart regular rhythm rate about 110 no murmur. Abdomen is soft no peritoneal signs. No obstruction. No uterine tenderness. Patient moving all 4 extremities. Nontender. No edema. Neurologically she is awake and alert.] Medical Decision Making [18-week female with nausea and vomiting. Treated with IV fluids and IV Zofran. When she can hold down fluids she will be discharged home. Prescription for Zofran. Follow-up with her DIRECTOR OF RECRUITMENT AND ADMISSIONS physician. Return if worse.] Other additions or changes: [None] Discharge Plan Triage Chief Complaint: Nausea/Vomiting ED Midlevel Provider: Edilia Zavala ED Provider: Andres Bullock Dx/Rx/DC Orders Clinical Impression: Nausea and vomiting during Instructions: ED Hyperemesis Gravidarum Prescriptions: New ondansetron 4 mg tablet,disintegrating 4 mg PO Q8H PRN PRN (Reason: Nausea) Qty: 10 0RF No Action ondansetron HCl [Zofran] 4 mg tablet 4 mg PO TID PRN (Reason: nausea and vomiting) Qty: 90 2RF promethazine 12.5 mg tablet 12.5 mg PO Q6H PRN (Reason: nausea and vomiting) Qty: 60 2RF hydroxyzine pamoate [Vistaril] 25 mg capsule 25 mg PO QHS Qty: 30 4RF enoxaparin [Lovenox] 40 mg/0.4 mL syringe 40 mg subcut DAILY Qty: 30 10RF naproxen 500 MG tablet 500 mg PO BID PRN Qty: 20 0RF ondansetron [ondansetron] 4 MG tablet 4 mg PO Q8H PRN PRN (Reason: Nausea) Qty: 10 0RF Referrals: Care Physician,No Primary [NON-STAFF] - Activity Restrictions/Additional Instructions: I prescribed Zofran to take as needed for nausea and vomiting. Please follow-up with your DIRECTOR OF RECRUITMENT AND ADMISSIONS. If you cannot keep down fluids despite medication or feel dehydrated or lightheaded come back to the emergency room. Disposition Disposition: Home, Self Care
[2021-09-07] MEDS: Ondansetron 4 MG/2 ML Vial IV (15:51)
[2021-09-07] MEDS: 0.9% Normal Saline 1,000 ML 999 ML IV (15:51)
[2021-09-07] MEDS: Pantoprazole Sodium 40 MG Tablet PO (16:24)
[2021-09-07 16:42] VITALS: BP 118/78; PULSE 66; RESP 14; TEMP 37.1; O2SAT 100
== END 2021-09-07 16:43 | disposition home or self-care (01) ==
PROVIDERS: Emergency Provider Emergency Medicine; Visit Provider Emergency Medicine
DX: O21.9 Vomiting of pregnancy, unspecified (principal); O20.9 Hemorrhage in early pregnancy, unspecified; O99.891 Other specified diseases and conditions complicating pregnancy; Z3A.18 18 weeks gestation of pregnancy; Z86.2 Personal history of diseases of the blood and blood-forming organs and certain disorders involving the immune mechanism
CPT/HCPCS: 96361; 96374; 99284; J7030; A4216; J2405

== ENCOUNTER 2021-10-19 20:50 | Outpatient (CLI) | payer OTHER, SELFPAY ==
[2021-10-19 21:01] VITALS: BMI 23.3
[2021-10-19 21:13] VITALS: BP 99/64; PULSE 89
--- NOTE | 2021-10-20 10:25 | OB.TRI.PN ---
Progress Notes Progress Note: at 23 weeks with OSWALDO 02/09/22 for decreased movement. no leakage of fluid, vaginal bleeding, or contractions O: FHR 140s, no NST due to gestational age. Able to hear movement on monitor Assessment & Plan (1) Decreased movement: PLAN: reviewed FKCs D/C home
== END 2021-10-19 22:20 | disposition home or self-care (01) ==
LOC: WPOUT 20:52 → WP 20:53
PROVIDERS: Visit Provider Advanced Practice Midwife
DX: O36.8120 Decreased fetal movements, second trimester, not applicable or unspecified (principal); Z3A.23 23 weeks gestation of pregnancy
CPT/HCPCS: 59050; 99218; G0378

== ENCOUNTER 2022-02-04 10:16 | Inpatient (IN) | payer OTHER, SELFPAY ==
[2022-02-04] VITALS (15 sets, daily range): BP systolic 83–110; BP diastolic 47–66; PULSE 80–131; RESP 16–17; TEMP 36.1–36.9; O2SAT 96–100; BMI 25.4
[2022-02-04] MEDS: Acetaminophen 500 MG Tablet 1000 MG PO ×3 (10:37→23:36)
[2022-02-04] MEDS: Lactated Ringers 1,000 ML 999 ML IV ×2 (10:58→14:45)
[2022-02-04 11:13] LABS: Absolute Lymphocyte Count 1.56 X10^3/uL (0.83-4.51); Absolute Neutrophil Count 5.4 X10^3/uL (2.0-7.7); Basophil# 0.02 X10^3/uL; Basophil% 0.3 % (0-1); Eosinophil# 0.08 X10^3/uL; Eosinophils% 1.1 % (0-5); Hemoglobin 10.3 g/dL (12.0-15.0); Lymphocyte # 1.56 X10^3/ul (0.83-4.51); Lymphocyte % 20.7 % (19-41); Mean Corp Hgb Conc 34.3 g/dL (32-36); Mean Corpuscular Hgb 29.9 pg (27.0-32.0); Mean Platelet Vol. 8.9 fl (6.2-12.0); Monocyte# 0.39 X10^3/uL; Monocyte% 5.2 % (0-10); NRBC Flagged by Analyzer 0 % (0-5); Neutrophil # 5.38 X10^3/uL (2.7-7.7); Neutrophil % 71.5 % (47-70); Platelet Count 275 K/mm3 (150-450); RBC Distribution Width SD 47.9 fl (35.1-43.9); Red Blood Count 3.45 M/mm3 (4.2-5.4); White Blood Count 7.5 K/mm3 (4.4-11.0)
[2022-02-04] MEDS: Sodium Citrate/Citric Acid 30 ML UDC PO (11:52)
[2022-02-04] MEDS: Cefazolin 2 GM in 0.9% Normal Saline 100 ML IV (12:15)
--- NOTE | 2022-02-04 12:26 | PCM.HP.OB ---
HPI - General General Date of Admission: 02/04/22 Date of Service: 02/04/22 HPI Narrative PB CHU, is a 26 F who presents for . Maternal Data Information Final OSWALDO: 02/09/22 Gestational age: 39&2 PFSH PFSH Medical History Anemia Anxiety Asthma Bleeding disorder Congenital heart defect Depression Factor V deficiency GERD (gastroesophageal reflux disease) Headache History of blood clots History of blood transfusion History of maternal blood transfusion, currently Migraine headache Pneumonia depression hemorrhage hemorrhage of section wound Home Medications promethazine 12.5 mg tablet 12.5 mg PO Q6H PRN nausea and vomiting #60 tabs 10/18/20 [Rx Last Taken 02/03/22 18:30] folic acid 1 mg tablet 1 mg PO DAILY 10/19/21 [History Last Taken 02/02/22 12:00] Allergy/AdvReac Type Severity Reaction Status Date / Time latex Allergy Rash Verified 02/04/22 10:18 Sulfa (Sulfonamide Allergy Rash Verified 02/04/22 10:18 Antibiotics) nickel AdvReac Rash Verified 02/04/22 10:18 Family History Sister Kidney disease Mother Liver disease Surgical History H/O section H/O reconstruction of anterior cruciate ligament tear History of myringotomy History of tonsillectomy Social History household members: children number of children: 1 current occupational status: employed current occupation: [employer] pets and animals: No Smoking Status: Former smoker Electronic Cigarette Use: not used second hand exposure: Yes (BF vapes) alcohol intake: current alcohol intake frequency: holidays/special occasions only substance use type: does not use seatbelt use: always do you feel safe at home: Yes additional social history: BF- Jorden ([email or web address]) History 2 Elective abortions 1 Hx Para 1 Spontaneous abortions Hx # Term Pregnancies Ectopic pregnancies Hx # Pregnancies Multiple births # of living children 1 Past Pregnancies Del. Date Name GA/Weeks Outcome Route Bth Weight Gen Labor Lgth Anesthesia Del Locatn Provider FOB 08/19/18 Deneen 39 live - full term 8lbs 11oz Female 39 hours epidural [place] Delivery Date: 08/19/18 Last Updated by: Yasmin Pineda Pre term labor at 21 weeks and bleeding given Rhogam and steroid injection to stop the contractions. Maternal tachycardia; bradycardia STAT C/S; C/S hemorrhage- receive a blood transfusion. Factor V was on Lovenox and Heparin Vital Signs Vital Signs Vital Signs: Weight Weight: 135 lb Body Mass Index (BMI) 25.4 Physical Exam Const alert and oriented x3 Chest inspection of chest normal Resp normal respiratory effort GI soft to palpation, non-tender and non-distended Inspection: gravid Labs Labs Labs: Blood Type A NEGATIVE Antibody Screen NEGATIVE Hct 30.0 % (37-47) L Hgb 10.3 g/dL (12.0-15.0) L Syphilis Total Ab Non-reactive Rubella IgG Antibody Reactive (Nonreactive) Hep Bs Antigen Non-Reactive (Nonreactive) Chlamydia DNA (ERIN) Negative (Negative) Neisseria gonorrhoeae DNA (ERIN) Negative (Negative) HIV 1&2 Antibody Non-Reactive (Nonreactive) See CF H&P Assessment & Plan (1) H/O section: (2) Factor V deficiency: (3) Request for sterilization: PLAN: Plan @ 39&2 Admit to L&D MOD - repeat section Sterilization request - plan for bilateral salpingectomy Informed consent signed after discussing R/B/A including risks of regret & failure with sterilization H/o DVT - needs PP lovenox Routine care
--- NOTE | 2022-02-04 12:40 | FALS_PTH ---
PATIENT: PB CHU LOC: [facility] U#:[id number] AGE/SX: 26/F ROOM: WP005 RE02/04/[address]: Dr. Reginald Quan MD : 1995 BED: 1 DIS: 02/05/2022 SPEC #: [id number] RECD: 02/04/22 15:02 STATUS: MICHAEL DAYKareem #: [id number] LELIA: 02/04/22 12:[address]: Reginald Quan DEPT: SURGICAL PATHOLOGY RECD BY: Billie Lenz Tissues: Fallopian tube Procedures: Surgery Specimen Level II HEADER OPERATION: Tubal ligation PRE-OP DIAGNOSIS: Sterilization TISSUE SUBMITTED: Fallopian tubes, left tube with suture MICROSCOPIC DIAGNOSIS Right fallopian tube, salpingectomy: Benign paratubal cyst. Left fallopian tube, salpingectomy: No pathologic change. AM:maria del carmen 02/06/2022 MICROSCOPIC DESCRIPTION Slides are reviewed. GROSS DESCRIPTION Received in fixative is one container labeled with the patient's name and designated bilateral fallopian tubes. The specimen consists of bilateral fallopian tubes including fimbrial ends. The left tube is identified by a suture. The right fallopian tube measures 8.5 cm in length and 0.6 cm in diameter and left fallopian tube measures 6 cm in length and 0.6 cm in diameter. Sections reveal unremarkable cut surfaces. Copper Plater sections are submitted in two cassettes as follows: 1 - right fallopian tube, 2??left fallopian tube. / SHANA:maria del carmen 02/05/2022 TC:5 CPT: 48384 x2
--- NOTE | 2022-02-04 13:27 | EX.PCM.OBRPT ---
Maternal Data Information Final OSWALDO: 02/09/22 Gestational age: 39&2 Details Operative Information Date of Procedure: 02/04/22 Pre-Operative Diagnosis: (1) Prior section (2) Sterilization request Post-Operative Diagnosis: Same Indications for : Repeat Elective and Desires elective sterilization Indications Narrative: The patient was taken to the operating room where spinal anesthesia was placed & found to be adequate. She was prepped and draped in the dorsal supine position with a leftward tilt. A Pfannenstiel skin incision was made approximately 2 cm above the symphysis pubis and carried through to the underlying fascia with the scalpel. The fascia was incised incised in the midline and extended laterally with the Zhang scissors. The rectus muscles were in the midline and the peritoneum was entered carefully and bluntly. The peritoneal incision was stretched and the bladder blade was inserted. Vesicouterine peritoneum was tented up, incised & then bladder flap created gently. The uterine incision was made in a low transverse fashion with the scalpel and extended superiorly and inferiorly with blunt dissection. The infant's head was brought to the incision in the flexed position and delivered without difficulty. The head was gently guided to allow delivery of the anterior and posterior shoulders. The body then delivered with fundal pressure in the standard fashion. The 3VC cord was clamped and cut in delayed fashion. The infant was handed off to the waiting seasonal retail merchandiser. The placenta was delivered with fundal massage and gentle traction in the standard fashion. The uterus was exteriorized and cleared of clots and debris. The uterine incision was closed with #1 Vicryl suture in a running locked fashion. Monocryl suture was used in an imbricating fashion. The incision was examined and was found to be hemostatic. Attention was then turned to the fallopian tubes. The left fallopian tube was grasped, cauterized and cut using the ligasure. Excellent hemostasis was obtained. Then the right fallopian tube was grasped, cauterized and cut using the ligasure. Excellent hemostasis was obtained The uterus was returned to the abdominal cavity. Again excellent hemostasis of the tubal excision sites was confirmed. After irrigating Fely was placed over the uterine incision as some areas were denuded (but hemostatic). The peritoneum was closed with vicryl suture in running fashion The rectus muscle was examined and any bleeding was Bovie cauterized. The fascia was closed with PDS suture in a running standard fashion. The subcutaneous tissue was examining and any bleeding was Bovie cauterized. The subcutaneous tissue was reapproximated with interrupted sutures. The skin was closed in a subcuticular fashion by the GENERAL FREIGHT AGENT while I was present in the labor & delivery unit. The remainder of the procedure was performed by me with assistance. All sponge, lap, and needle counts were correct. The patient was taken to her room for recovery in a stable condition. Classification: Scheduled Procedure Type: bilateral salpingectomy resource economist #1: Kelly Palumbo Type of Anesthesia: Spinal Antibiotic Given: Ancef 2 grams IV x1 Drain: Herring to straight drain Estimated Blood Loss: 800ml Fluids Replaced: 1,000ml Procedure Start Time: 12:37 Procedure Stop Time: 13:30 Findings Description of Procedure: Normal maternal uterus and adnexa Presentation: Positive for Vertex Amniotic Membrane Rupture Type: Artificial Amniotic Fluid Description: Clear Placental Delivery Description: Expressed Placenta Disposition: [facility] Specimen(s) Sent to Pathology: bilateral fallopian tubes Cord Vessel Description: 3 Vessels Cord Entanglement: None Infant A Gender: Male (weight = 9lbs) (1 minute): 8 (5 minute): 9 Delayed Cord Clamping: Yes
[2022-02-04] MEDS: Ketorolac 30 MG/ML Syringe IV ×2 (14:12→20:06)
[2022-02-04] MEDS: Oxytocin 15 Units/NS 250ml 15 UNITS/250 ML IV.SOLN 83 UNITS IV (14:48)
[2022-02-04 15:04] LABS: Pathology Specimen OB SEE PATHOLOGY REPORT
[2022-02-04] MEDS: Methylergonovine 0.2 MG/ML Ampul IM (15:05)
[2022-02-04 15:39] LABS: Absolute Lymphocyte Count 0.77 X10^3/uL (0.83-4.51); Absolute Neutrophil Count 16.8 X10^3/uL (2.0-7.7); Basophil# 0.03 X10^3/uL; Basophil% 0.2 % (0-1); Eosinophil# 0.02 X10^3/uL; Eosinophils% 0.1 % (0-5); Hematocrit 27.4 % (37-47); Hemoglobin 9.4 g/dL (12.0-15.0); Lymphocyte # 0.77 X10^3/ul (0.83-4.51); Lymphocyte % 4.2 % (19-41); Mean Corp Hgb Conc 34.3 g/dL (32-36); Mean Corpuscular Hgb 29.7 pg (27.0-32.0); Mean Corpuscular Volume 86.4 fL (81-99); Mean Platelet Vol. 8.8 fl (6.2-12.0); Monocyte# 0.53 X10^3/uL; Monocyte% 2.9 % (0-10); NRBC Flagged by Analyzer 0 % (0-5); Neutrophil # 16.78 X10^3/uL (2.7-7.7); Neutrophil % 91.9 % (47-70); Platelet Count 266 K/mm3 (150-450); RBC Distribution Width CV 14.8 % (11.6-14.6); RBC Distribution Width SD 47.1 fl (35.1-43.9); Red Blood Count 3.17 M/mm3 (4.2-5.4); White Blood Count 18.3 K/mm3 (4.4-11.0)
[2022-02-04 15:53] LABS: Fibrinogen 236 mg/dl (203-444)
[2022-02-04] MEDS: miSOPROStol 200 MCG Tablet 1000 MCG RC (16:09)
[2022-02-04] MEDS: Ondansetron 4 MG/2 ML Vial IV (16:12)
[2022-02-04] MEDS: proCHLORPERazine 10 MG/2 ML Vial IV (17:25)
[2022-02-04] MEDS: Lactated Ringers 1,000 ML 100 ML IV (18:34)
--- NOTE | 2022-02-04 20:58 | NURSING ---
During initial assessment at 1999, pt VS WNL, bleeding was small on pad with no clots. Pt stated to me and Claire Stallworth she still felt dizzy but nausea was gone and otherwise felt okay. Fundus was at U and firm and no new bleeding when pressing on belly.
[2022-02-05] VITALS (12 sets, daily range): BP systolic 85–100; BP diastolic 49–67; PULSE 74–89; RESP 16–18; TEMP 36.3–37.1; O2SAT 98–99
[2022-02-05] MEDS: Enoxaparin 40 MG/0.4 ML Syringe SC (00:24)
[2022-02-05] MEDS: Ketorolac 30 MG/ML Syringe IV ×2 (02:12→08:30)
[2022-02-05] MEDS: 0.9% Saline Lock 10 ML Syringe IV ×2 (02:12→08:31)
[2022-02-05] MEDS: Acetaminophen 500 MG Tablet 1000 MG PO ×3 (05:28→17:44)
[2022-02-05 05:29] LABS: Hematocrit 20.8 % (37-47); Hemoglobin 7.2 g/dL (12.0-15.0); Mean Corp Hgb Conc 34.6 g/dL (32-36); Mean Corpuscular Hgb 30.1 pg (27.0-32.0); Mean Platelet Vol. 8.7 fl (6.2-12.0); Platelet Count 207 K/mm3 (150-450); RBC Distribution Width CV 14.6 % (11.6-14.6); RBC Distribution Width SD 47.4 fl (35.1-43.9); Red Blood Count 2.39 M/mm3 (4.2-5.4); White Blood Count 13.7 K/mm3 (4.4-11.0)
--- NOTE | 2022-02-05 08:26 | PCM.PROGNOTE ---
Subjective Subjective patient seen at bedside, doing well. Patient reports good pain control. lochia mild. voiding and passing flatus- some dizziness at times when ambulating. denies CP, SOB. Objective Data Objective Data Vital Signs: Vital Signs Temp Pulse Resp BP Pulse Ox O2 Del Method 97.9 F 85 16 99/67 98 Room Air 02/05/22 08:00 02/05/22 08:00 02/05/22 08:00 02/05/22 08:00 02/05/22 08:00 02/05/22 08:00 Oxygen Delivery Method Room Air Weight: 61.235 kg Body Mass Index (BMI) 25.4 Intake & Output: Intake and Output for Last 24 Hours 02/03/22 02/04/22 02/05/22 23:59 23:59 23:59 Intake Total 2756.67 / 2756.67 Output Total 1531 / 1531 550 / 550 Balance 1225.67 / 1225.67 -550 / -550 Lab / Micro Data Result Diagrams: 02/05/22 05:20 Labs: Laboratory Results - last 24 hr 02/04/22 10:58: WBC 7.5, RBC 3.45 L, Hgb 10.3 L, Hct 30.0 L, MCV 87.0, MCH 29.9, MCHC 34.3, RDW Std Deviation 47.9 H, RDW Coeff of Brice 15.0 H, Plt Count 275, MPV 8.9, Immature Gran % (Auto) 1.200 H, Neut % (Auto) 71.5 H, Lymph % (Auto) 20.7, Crook % (Auto) 5.2, Eos % (Auto) 1.1, Baso % (Auto) 0.3, Absolute Neuts (auto) 5.4, Absolute Lymphs (auto) 1.56, Nucleated RBC % 0 02/04/22 10:58: Blood Type A NEGATIVE, Antibody Screen POSITIVE H, Antibody Identification ANTI-D 02/04/22 10:58: Crossmatch See Detail 02/04/22 15:30: WBC 18.3 H, RBC 3.17 L, Hgb 9.4 L, Hct 27.4 L, MCV 86.4, MCH 29.7, MCHC 34.3, RDW Std Deviation 47.1 H, RDW Coeff of Brice 14.8 H, Plt Count 266, MPV 8.8, Immature Gran % (Auto) 0.700, Neut % (Auto) 91.9 H, Lymph % (Auto) 4.2 L, Crook % (Auto) 2.9, Eos % (Auto) 0.1, Baso % (Auto) 0.2, Absolute Neuts (auto) 16.8 H, Absolute Lymphs (auto) 0.77 L, Nucleated RBC % 0 02/04/22 15:30: Fibrinogen 236 02/05/22 05:20: WBC 13.7 H, RBC 2.39 L, Hgb 7.2 L, Hct 20.8 L, MCV 87.0, MCH 30.1, MCHC 34.6, RDW Std Deviation 47.4 H, RDW Coeff of Brice 14.6, Plt Count 207, MPV 8.7 Physical Exam Const alert and oriented x3 General Appearance: cooperative HEENT normocephalic Neck General: normal visual inspection GI soft to palpation and non-distended GI Narrative: Fundus firm Extremity normal to inspection and no calf tenderness Skin no rashes or lesions noted Neuro oriented x3 and CN's II-XII intact bilaterally Psych mental status grossly normal Assessment & Plan Assessment/Plan (1) Delivery by section: (2) Acute on chronic blood loss anemia: PLAN: Plan POD#1 , acute on chronic blood loss anemia Routine care pain mgmt monitor VS ambulation orders were given previously for 2u PRBC for symptomatic anemia continue PO iron repeat cbc 4 hr Post OP pt requesting dc home tonight if continues to be stable after blood transfusion.
[2022-02-05] MEDS: DiphenhydrAMINE 25 MG Capsule PO (08:30)
[2022-02-05] MEDS: 0.9% Normal Saline 1,000 ML 15 ML IV (08:31)
--- NOTE | 2022-02-05 08:31 | DCINST_ITS ---
Discharge Instructions Procedure Diet Discharge Diet: No restrictions Activity May resume sexual activity in: 6-8 weeks Lifting Restrictions: 25 Dressing / Incision Call your doctor if your incision/area has: Continuous Slow Oozing, Sudden Increased Bleeding, Increased Pain/ Swelling, Increased Redness, Foul Smelling Discharge and Swelling at the incision site Call your doctor if you observe: Fever of 101 or Higher, Inability to urinate, Using more than 1 pad per hour and Uncontrolled pain Additional Dressing/Incision Instructions:: remove dressing at 7 days post op- if it becomes saturated prior to that time you may remove it. Let soap and water run over incision sites and dab dry. keep incision clean and dry. Follow Up Care Please Follow Up With: Flor Webster MD When: 1-2 weeks post of incision check and again at 6 weeks post . [phone] Test Results: Test results from this visit will be discussed in further detail at your follow- up appointment, if applicable. Discharge Plan Admission Admit Date/Time: 02/04/22 10:16 Attending Provider: Reginald Quan Discharge Orders/Prescriptions Prescriptions: New acetaminophen 500 mg Tablet 1,000 mg PO Q6H Qty: 0 0RF ferrous sulfate [FeroSul] 325 mg (65 mg iron) Tablet 325 mg PO 1200,1700 Qty: 0 0RF ibuprofen 600 mg Tablet 600 mg PO Q6H Qty: 0 0RF Discontinued promethazine 12.5 mg tablet 12.5 mg PO Q6H PRN (Reason: nausea and vomiting) Qty: 60 2RF folic acid 1 mg tablet 1 mg PO DAILY Label Comments: take 1 tablet by mouth once daily Disposition Disposition (needs filled in before D/C Order can be placed): Home, Self Care
[2022-02-05] MEDS: Ferrous Sulfate 325 MG Tablet PO ×2 (11:37→17:44)
[2022-02-05] MEDS: Senna/Docusate Sodium 1 Tablet PO (11:37)
--- NOTE | 2022-02-05 11:55 | NURSING ---
Reports QS void in bathroom - not caught in hat
[2022-02-05] MEDS: Ibuprofen 600 MG Tablet PO ×2 (14:19→20:05)
[2022-02-05 17:57] LABS: Absolute Lymphocyte Count 1.66 X10^3/uL (0.83-4.51); Absolute Neutrophil Count 10.1 X10^3/uL (2.0-7.7); Basophil# 0.02 X10^3/uL; Basophil% 0.2 % (0-1); Eosinophil# 0.06 X10^3/uL; Eosinophils% 0.5 % (0-5); Hematocrit 27.1 % (37-47); Hemoglobin 9.2 g/dL (12.0-15.0); Lymphocyte # 1.66 X10^3/ul (0.83-4.51); Lymphocyte % 12.9 % (19-41); Mean Corp Hgb Conc 33.9 g/dL (32-36); Mean Corpuscular Hgb 29.4 pg (27.0-32.0); Mean Corpuscular Volume 86.6 fL (81-99); Mean Platelet Vol. 8.7 fl (6.2-12.0); Monocyte# 0.92 X10^3/uL; Monocyte% 7.2 % (0-10); NRBC Flagged by Analyzer 0 % (0-5); Neutrophil # 10.07 X10^3/uL (2.7-7.7); Neutrophil % 78.5 % (47-70); Platelet Count 194 K/mm3 (150-450); RBC Distribution Width SD 46.7 fl (35.1-43.9); Red Blood Count 3.13 M/mm3 (4.2-5.4); White Blood Count 12.8 K/mm3 (4.4-11.0)
== END 2022-02-05 20:55 | disposition home or self-care (01) | DRG 784 ==
PROVIDERS: Obstetrics & Gynecology; Admitting Provider Obstetrics & Gynecology; Visit Provider Obstetrics & Gynecology
PROC: 10D00Z1 Extraction of Products of Conception, Low, Open Approach (ICD-10-PCS; CPT 59514; principal; 2022-02-04 11:45)
DX: O34.219 Maternal care for unspecified type scar from previous cesarean delivery (principal); O99.12 Other diseases of the blood and blood-forming organs and certain disorders involving the immune mechanism complicating childbirth; D68.2 Hereditary deficiency of other clotting factors; D62 Acute posthemorrhagic anemia; O90.81 Anemia of the puerperium; Z37.0 Single live birth; Z30.2 Encounter for sterilization; Z87.891 Personal history of nicotine dependence
CPT/HCPCS: 59025; 59050; 85025; 85027; 85384; 86850; 86870; 86900; 86901; 86920; 88302; 99218; 99406; J7030; J7120; P9016; A4216; G0378; J2405